=== PATIENT | female | born 1970 | race Hispanic/Latino ===

== ENCOUNTER 2018-06-30 11:07 | Outpatient (CLI) | payer BC ==
--- NOTE | 2018-06-30 12:21 | MMO ---
BILATERAL DIGITAL SCREENING MAMMOGRAMS: Date: 06/30/18 HISTORY: 48-year-old female presents for digital screening mammogram. COMPARISON: 06/14/17, 02/24/16, 09/20/14. FINDINGS: This patient's mammogram was interpreted with the assistance of computer-aided detection. The breasts are heterogeneously dense, which can obscure small masses. No direct or indirect evidence of malignancy. Appearance is stable. IMPRESSION: BIRADS 1: Negative Continue routine screening. POS: [facility]
== END 2018-06-30 11:08 | disposition home or self-care (01) ==
LOC: SCSMAMMO 11:07
PROVIDERS: ATTEND Family Medicine
DX: Z12.31 Encounter for screening mammogram for malignant neoplasm of breast (principal)
CPT/HCPCS: 77067

== ENCOUNTER 2021-10-09 13:37 | Outpatient (CLI) | payer BC | END 2021-10-09 13:38 | disposition home or self-care (01) | LOC: ULT 13:37 | PROVIDERS: ATTEND Internal Medicine Hematology & Oncology | DX: Z51.11 Encounter for antineoplastic chemotherapy (principal); C50.812 Malignant neoplasm of overlapping sites of left female breast; I07.1 Rheumatic tricuspid insufficiency; Z79.899 Other long term (current) drug therapy | CPT/HCPCS: 93306 ==

== ENCOUNTER 2021-10-12 08:30 | Outpatient (CLI) | payer BC ==
[2021-10-12] MEDS ORDERED: Iopamidol 370 76% 100 ML VIAL ONE (13:19)
== END 2021-10-12 08:31 | disposition home or self-care (01) ==
LOC: CT 08:30
PROVIDERS: ATTEND Internal Medicine Hematology & Oncology
DX: C50.812 Malignant neoplasm of overlapping sites of left female breast (principal); R59.0 Localized enlarged lymph nodes; C78.7 Secondary malignant neoplasm of liver and intrahepatic bile duct
CPT/HCPCS: 71260; 74177; 78306; A9503

== ENCOUNTER 2021-10-19 14:31 | Outpatient (CLI) | payer BC ==
[2021-10-20 08:59] LABS: SARS-CoV-2 PCR by NAA Not Detected (NotDetected)
== END 2021-10-19 14:32 | disposition home or self-care (01) ==
LOC: LABBT 14:31
PROVIDERS: ATTEND Internal Medicine Hematology & Oncology
DX: Z01.812 Encounter for preprocedural laboratory examination (principal); Z20.822 Contact with and (suspected) exposure to COVID-19
CPT/HCPCS: U0003; U0005

== ENCOUNTER 2021-10-29 08:45 | Day surgery (SDC) | payer BC ==
[2021-10-22 10:27] VITALS: BMI 29.8
[2021-10-29 09:07] LABS: PTT 28.8 sec (22.9-36.1); Prothrombin Time 13.5 sec (12.0-14.7)
[2021-10-29 09:16] VITALS: BP 123/73
== END 2021-10-29 12:30 | disposition home or self-care (01) ==
LOC: CT 08:45
PROVIDERS: ATTEND Internal Medicine Hematology & Oncology
PROC: 0FB13ZX Excision of Right Lobe Liver, Percutaneous Approach, Diagnostic (ICD-10-PCS; principal; 2021-10-29)
DX: C78.7 Secondary malignant neoplasm of liver and intrahepatic bile duct (principal); C50.812 Malignant neoplasm of overlapping sites of left female breast; C77.3 Secondary and unspecified malignant neoplasm of axilla and upper limb lymph nodes; K21.9 Gastro-esophageal reflux disease without esophagitis; Z17.0 Estrogen receptor positive status [ER+]; Z79.899 Other long term (current) drug therapy
CPT/HCPCS: 47000; 76942; 85610; 85730; 88307

== ENCOUNTER 2022-04-12 08:29 | Outpatient (CLI) | payer BC | END 2022-04-12 08:30 | disposition home or self-care (01) | LOC: CT 08:29 | PROVIDERS: ATTEND Internal Medicine Hematology & Oncology | DX: C50.812 Malignant neoplasm of overlapping sites of left female breast (principal); D70.8 Other neutropenia; C79.51 Secondary malignant neoplasm of bone; C78.7 Secondary malignant neoplasm of liver and intrahepatic bile duct | CPT/HCPCS: 71260; 74177; 78306; A9503 ==

== ENCOUNTER 2022-06-03 15:41 | Outpatient (CLI) | payer BC ==
[2022-06-03 18:17] LABS: #Basophils 0.1 10x3/uL (0.0-0.2); #Eosinphils 0.5 10x3/uL (0.0-0.5); #Monocytes 0.6 10x3/uL (0.0-1.1); #Neutrophils 3.2 10x3/uL (1.5-8.4); %Basophils 1.2 % (0.0-2.0); %Eosinophils 8.2 % (0.0-6.0); %Lymphocytes 31.4 % (18.0-47.0); %Monocytes 9.7 % (0.0-10.0); %Neutrophils 49.2 % (40.0-75.0); Hemoglobin 12.7 g/dL (12.0-15.5); Mean Corpuscular HGB CONC 34.9 g/dL (32.0-36.0); Mean Corpuscular Hemoglobin 32.3 pg (27.0-33.0); Mean Corpuscular Volume 92.6 fl (81.6-98.3); Mean Platelet Volume 10.4 fl (7.4-10.4); Platelet Count 358 10x3/uL (150-450); RBC Distribution Width 11.6 % (11.5-14.5); Red Blood Cell (RBC) Count 3.93 10x6/uL (3.90-5.03); White Blood Cell (WBC) Count 6.6 10x3/uL (3.5-10.5)
[2022-06-03 18:44] LABS: Anion Gap 14 mmol/L (10-20); BUN (Urea Nitrogen) 16 mg/dL (9.8-20.1); Calc. Creatinine Clearance 0 mL/min (70-130); Calcium 9.3 mg/dL (7.8-10.44); Carbon Dioxide 21 mmol/L (22-29); Chloride 106 mmol/L (98-107); Estimated GFR 99; Glucose 77 mg/dL (70-105); Sodium 137 mmol/L (136-145)
== END 2022-06-03 15:42 | disposition home or self-care (01) ==
LOC: LABBT 15:41
PROVIDERS: ATTEND Surgery
DX: Z01.812 Encounter for preprocedural laboratory examination (principal); C50.919 Malignant neoplasm of unspecified site of unspecified female breast; Z20.822 Contact with and (suspected) exposure to COVID-19
CPT/HCPCS: 80048; 85025; 87811

== ENCOUNTER 2022-06-07 06:07 | Day surgery (SDC) | payer BC ==
[2022-06-04 10:59] VITALS: BMI 27.1
[2022-06-07] MEDS ORDERED: Midazolam HCl 2 mg/2 ml Vial ONE (06:24)
[2022-06-07] MEDS ORDERED: Famotidine/PF 20 mg/2ml Vial ONE (06:25)
[2022-06-07] MEDS ORDERED: PROPOFOL 60 ML ONE (06:25)
[2022-06-07] MEDS ORDERED: fentaNYL Citrate/PF 100 MCG/2 ML SYRINGE ONE (06:25)
[2022-06-07] MEDS ORDERED: Bupivacaine/Epinephrine 0.25% 30 ML VIAL ONE (06:35)
[2022-06-07] MEDS ORDERED: Acetaminophen 500 MG TAB ONE (06:37)
[2022-06-07] MEDS ORDERED: Sodium Chloride 0.9% 100 ML ONE (07:23)
[2022-06-07] MEDS ORDERED: CEFAZOLIN 2 GM VIAL ONE (07:23)
[2022-06-07] MEDS ORDERED: Lidocaine 1% PF 5 ML VIAL ONE (07:34)
[2022-06-07] MEDS ORDERED: Metoclopramide HCl 10 MG/2 ML VIAL ONE (07:34)
[2022-06-07] MEDS ORDERED: Ketorolac Tromethamine 30 MG/ML VIAL ONE (07:34)
[2022-06-07] MEDS ORDERED: PROPOFOL 200 MG/20 ML VIAL ONE (07:34)
[2022-06-07] MEDS ORDERED: Ondansetron PF 4 MG/2 ML Vial ONE (07:34)
[2022-06-07] MEDS ORDERED: Phenylephrine 10 MG/ML VIAL ONE (07:34)
== END 2022-06-07 10:10 | disposition home or self-care (01) ==
LOC: SDC 06:07
PROVIDERS: ATTEND Surgery
PROC: 02HV33Z Insertion of Infusion Device into Superior Vena Cava, Percutaneous Approach (ICD-10-PCS; principal; 2022-06-07)
PROC: 0JH60WZ Insertion of Totally Implantable Vascular Access Device into Chest Subcutaneous Tissue and Fascia, Open Approach (ICD-10-PCS; principal; 2022-06-07)
DX: C50.912 Malignant neoplasm of unspecified site of left female breast (principal); C78.7 Secondary malignant neoplasm of liver and intrahepatic bile duct; C79.51 Secondary malignant neoplasm of bone; Z17.0 Estrogen receptor positive status [ER+]; Z79.899 Other long term (current) drug therapy
CPT/HCPCS: 71045; C1788; J0690; J1642; J1885; J2250; J2370; J2405; J2704; J2765; J3490; S0028

== ENCOUNTER 2022-09-22 08:10 | Outpatient (CLI) | payer BC ==
[2022-09-22] MEDS ORDERED: Iopamidol 370 76% 100 ML VIAL ONE (11:08)
== END 2022-09-22 08:11 | disposition home or self-care (01) ==
LOC: NM 08:10
PROVIDERS: ATTEND Internal Medicine Hematology & Oncology
DX: C79.51 Secondary malignant neoplasm of bone (principal); C50.812 Malignant neoplasm of overlapping sites of left female breast; D70.8 Other neutropenia
CPT/HCPCS: 71260; 74177; 78306; A9503; J1642; Q9967

== ENCOUNTER 2023-01-03 09:49 | Outpatient (CLI) | payer BC ==
[~2023-01-03 09:49] MED LIST: Iopamidol 370 76% 100 ML VIAL ONE
== END 2023-01-03 09:50 | disposition home or self-care (01) ==
LOC: CT 09:49
PROVIDERS: ATTEND Internal Medicine Hematology & Oncology
DX: C50.812 Malignant neoplasm of overlapping sites of left female breast (principal); C79.51 Secondary malignant neoplasm of bone; D70.8 Other neutropenia; J98.11 Atelectasis; N63.20 Unspecified lump in the left breast, unspecified quadrant
CPT/HCPCS: 71260; 74177; 78306; A9503; Q9967

== ENCOUNTER 2023-07-26 12:26 | Outpatient (CLI) | payer BC | END 2023-07-26 12:27 | disposition home or self-care (01) | LOC: BICULT 12:26 | PROVIDERS: ATTEND Student in an Organized Health Care Education/Training Program | DX: R60.0 Localized edema (principal) ==